=== PATIENT | female | born 1955 | race Two or more races ===

== ENCOUNTER 2021-10-29 08:34 | Outpatient (CLI) | payer OTHER | END 2021-10-29 08:51 | disposition home or self-care (01) | LOC: RAD 08:34 | PROVIDERS: ATTEND Internal Medicine Cardiovascular Disease | DX: Z12.31 Encounter for screening mammogram for malignant neoplasm of breast (principal); N63.11 Unspecified lump in the right breast, upper outer quadrant; M81.0 Age-related osteoporosis without current pathological fracture; J44.9 Chronic obstructive pulmonary disease, unspecified; M12.9 Arthropathy, unspecified ==

== ENCOUNTER → 2021-10-29 09:02 | Outpatient (CLI) | payer OTHER | END | disposition home or self-care (01) | LOC: LAB | PROVIDERS: ATTEND Internal Medicine Cardiovascular Disease | DX: E11.9 Type 2 diabetes mellitus without complications (principal); I10 Essential (primary) hypertension; E03.9 Hypothyroidism, unspecified; E78.2 Mixed hyperlipidemia; Z12.11 Encounter for screening for malignant neoplasm of colon; E55.9 Vitamin D deficiency, unspecified ==

== ENCOUNTER → 2021-10-29 11:12 | Outpatient (CLI) | payer OTHER | END | disposition home or self-care (01) | LOC: NUCLEAR 08:39 | PROVIDERS: ATTEND Internal Medicine Cardiovascular Disease | DX: M81.0 Age-related osteoporosis without current pathological fracture (principal); E55.9 Vitamin D deficiency, unspecified ==

== ENCOUNTER 2024-10-29 08:05 | Outpatient (CLI) | payer OTHER | END 2024-10-29 08:12 | disposition home or self-care (01) | LOC: RAD 08:05 | PROVIDERS: ATTEND Internal Medicine Cardiovascular Disease | DX: M19.90 Unspecified osteoarthritis, unspecified site (principal); M46.47 Discitis, unspecified, lumbosacral region ==

== ENCOUNTER 2024-12-12 09:36 | Outpatient (CLI) | payer OTHER | END 2024-12-12 09:38 | disposition home or self-care (01) | LOC: NUCLEAR 09:36 | PROVIDERS: ATTEND Internal Medicine | DX: M81.0 Age-related osteoporosis without current pathological fracture (principal) ==